=== PATIENT | male | born 1965 ===

== ENCOUNTER 2025-01-12 07:53 | Emergency (ER) | payer SELFPAY ==
[~2025-01-12] VITALS: Ht 182.9 cm; Wt 86.2 kg
[2025-01-12] MEDS ORDERED: CEPH500T PO (08:29)
[2025-01-12] MEDS ORDERED: ACET15SO5 LEFT EAR (08:29)
[2025-01-12 08:40] VITALS: BP 120/53; O2SAT 99
== END 2025-01-12 08:56 | disposition home or self-care (01) ==
LOC: ER 07:53
DX: H66.92 Otitis media, unspecified, left ear (principal)
CPT/HCPCS: A4606; A4663